=== PATIENT | male | born 1990 | race Caucasian/White ===

== ENCOUNTER → 2016-08-24 | Day surgery (SDC) | payer OTHER ==
[2016-08-23 13:42] VITALS: Ht 188 cm; Wt 86.4 kg
[~2016-08-24] VITALS: Ht 188 cm; Wt 86.4 kg
[~2016-08-24] MED LIST: ATROPINE SULFATE 0.1 MG/ML 5ML SYR IV PRN; BUPIVACAINE 0.5 % 5 MG/1 ML MPF 30ML VIAL ONE; BUPIVACAINE/EPINEPHRINE 0.5% MPF 1:200,000 30 ML VIAL ONE; CLINDAMYCIN PHOS 150 MG/ML 2 ML VIAL IV SCH; DEXAMETHASONE SOD INJ 4 MG/ML VIAL ONE; EpHEDrine SULFATE INJ 50 MG/ML AMP IV PRN; FENTANYL CITRATE INJ 50 MCG/1 ML 2 ML VIAL IV PRN; FENTANYL CITRATE INJ 50 MCG/1 ML 2 ML VIAL ONE; LACTATED RINGER'S 1000ML 1,000 ML IV SCH; LIDOCAINE HCL 2% 2 ML VIAL (20MG/ML) ONE; MIDAZOLAM HCL 1 MG/ML 2ML VIAL ONE; MULT-506 PO; NEOMYCIN/POLYMYX/BACITR OINT 15 GM TUBE ONE; ONDANSETRON INJ 2 MG/ML 2 ML VIAL IV PRN; ONDANSETRON INJ 2 MG/ML 2 ML VIAL ONE; PROPOFOL IV EMULSION 10 MG/ML 20 ML VIAL IV ONE; SODIUM CHLORIDE 0.9% 1000ML 1,000 ML IV SCH
--- NOTE | 2016-08-24 07:44 | History & Physical Bridge Note ---
H&P Re-Evaluation Bridge Note: I have examined the patient, reviewed the History & Physical and in the interval since the performance of the History & Physical I have noted the following changes of clinical significance: No changes noted
--- NOTE | 2016-08-24 08:33 | [facility] Operative Report ---
Operative Report Operative Date August 24, 2016. Pre-Operative Diagnosis Foreign Body Right Great Toe Post-Operative Diagnosis same Procedure(s) Performed wound exploration/irrigation under fluoroscopy Surgeon Dr. William Escamilla [employer] Surgeon(s) William Barajas PA-C Estimated Blood Loss NONE Findings callous/granuloma. no visible foreign body Specimens NONE Anesthesia MAC/digit block Complication(s) None Disposition Recovery Room / PACU I attest to the content of the Intraoperative Record and any orders documented therein. Any exceptions are noted below.
--- NOTE | 2016-08-24 08:43 | Discharge Instructions-SurgCtr ---
Discharge Instructions Date of Service August 24, 2016. Visit Reason for Visit: Right Great Toe Fb Discharge Discharge Diagnosis / Problem: Right Great Toe Fb Discharge Goals Goal(s): Decrease discomfort, Improve function Activity Recommendations Activity Limitations: as noted below Lifting Limitations: gradually increase as tolerated Exercise/Sports Limitations: rest today, gradually increase as tolerated May Resume Sexual Activity: when tolerated Shower/Bathe: tomorrow Anesthesia . Post Anesthesia Instructions: If you have had General Anesthesia or IV Sedation: * Do not drive today. * Resume driving when surgeon permits. * Do not make important decisions or sign legal documents today. * Call surgeon for: 1. Temperature elevations greater than 101 degrees F. 2. Uncontrollable pain. 3. Excessive bleeding. 4. Persistent nausea and vomiting. 5. Medication intolerance (nausea, vomiting or rash). * For nausea and vomiting use only clear liquids such as: tea, soda, bouillon until nausea subsides, then gradually increase diet as tolerated. * If you have any concerns or questions, call your surgeon's office. If physician is unavailable and it is an emergency, call 911 or go to the nearest emergency room. . Instructions / Follow-Up Instructions / Follow-Up You may use Ibuprofen for pain- you make take 2 tablets or capsules every 6 hours as needed for pain. Patient is leaving for [facility] in a few days and will be away for 2 months- please seek medical attention if there are any concerns. Please call the office at [phone] with any questions or concerns. Diet Recommendations Home Diet: no limitations Procedures Procedures Performed: Right Great Toe Exploration Pending Studies Studies pending at discharge: no Medical Emergencies . Who to Call and When: Medical Emergencies: If at any time you feel your situation is an emergency, please call 911 immediately. . Non-Emergent Contact Non-Emergency issues call your: Primary Care Provider, Surgeon Call Non-Emergent contact if: temperature is above 101.5, your pain is not controlled, wound has increased drainage, wound has increased redness . . "Provider Documentation" section prepared by Ann Marie Barajas. .
--- NOTE | 2016-08-24 08:50 | OPERATIVE REPORT ---
DATE OF OPERATION: 08/24/2016 PREOPERATIVE DIAGNOSIS: Foreign body in right great toe. POSTOPERATIVE DIAGNOSIS: Same. PROCEDURE: Wound exploration under fluoroscopy with attempted foreign body removal. SURGEON: Dr. Alcon Escamilla. RADIO MECHANIC: Ann Marie Barajas PA-C. ESTIMATED BLOOD LOSS: 5 mL. COMPLICATIONS: No immediate. ANESTHESIA: MAC with a great toe digit block with Marcaine. DESCRIPTION OF PROCEDURE: After informed consent was obtained, the patient was taken to the operating suite and placed the in supine position. IV sedation was administered by anesthesia. We then used a C-arm to attempt to identify the foreign body. There was a palpable lump and an opening in the skin. We did PA as well as lateral views of the toe and were unable to identify any foreign object in the soft tissue. I therefore abandoned fluoroscopy. We sterilely prepped and draped the toe. I used 0.5% Marcaine as a digit block for the great toe. I then used an 11 blade scalpel to deroof the hard callus skin over the palpable nodule. There was some firm, almost like granulomatous type tissue. I did excise this. I was unable to visually see or palpate the actual foreign body. I went into the toe, probably 3rd or half of a cm. I got down to the normal tissue. We thoroughly irrigated it. Unclear to me whether it was a simple granuloma or small seashell splinter that was not visible. Nonetheless, the firm nodule that had been there was removed during this process. After final irrigation, we put some antibiotic ointment and a sterile dressing over the area. The patient was awakened and transferred to recovery in stable condition. I attest to the content of the Intraoperative Record and any orders documented therein. Any exceptions are noted below. MTDD
[2016-08-24 09:05] VITALS: BP 113/70; PULSE 62; TEMP 37.1; O2SAT 100
--- NOTE | 2016-08-24 09:23 | Anesthesia Progress Nt - [facility] ---
Anesthesia Post Op Note Date & Time August 24, 2016 at 09:24 Vital Signs Pain Intensity: 0 Vital Signs Past 12 Hours Date Time Temp Pulse Resp B/P Pulse Ox O2 Delivery O2 Flow Rate FiO2 08/24/16 09:05 37.1 62 16 113/70 100 Room Air 08/24/16 08:51 114/74 08/24/16 08:51 36.9 67 12 114/74 98 Room Air 08/24/16 08:50 67 14 100 08/24/16 08:50 69 14 08/24/16 08:46 122/75 08/24/16 08:45 76 18 08/24/16 08:45 64 18 08/24/16 08:41 119/72 08/24/16 08:40 60 12 100 08/24/16 08:40 59 12 08/24/16 08:36 116/76 08/24/16 08:35 36.6 58 16 116/76 98 Diffusion Mask 6 08/24/16 07:13 36.5 71 18 125/81 98 Room Air Notes Mental Status: alert / awake / arousable, participated in evaluation Pt Amnestic to Procedure: Yes Nausea / Vomiting: adequately controlled Pain: adequately controlled Airway Patency, RR, SpO2: stable & adequate BP & HR: stable & adequate Hydration State: stable & adequate Anesthetic Complications: no major complications apparent
== END | disposition home or self-care (01) ==
LOC: X.SURG 06:35
PROVIDERS: ATTEND Surgery
DX: S90.451A Superficial foreign body, right great toe, initial encounter (principal); W22.8XXA Striking against or struck by other objects, initial encounter; Y92.832 Beach as the place of occurrence of the external cause; Z90.89 Acquired absence of other organs; Z82.49 Family history of ischemic heart disease and other diseases of the circulatory system; Z80.3 Family history of malignant neoplasm of breast; Z82.3 Family history of stroke